=== PATIENT | male | born 1985 | race African-American/Black ===

== ENCOUNTER 2019-03-12 18:54 | Emergency (ER) | payer SELFPAY ==
[2019-03-12 19:18] VITALS: BP 112/73; PULSE 77; RESP 16; TEMP 37.2; O2SAT 98; BMI 27.0
[2019-03-12 23:29] VITALS: BP 114/95; PULSE 94; RESP 22; TEMP 36.3; O2SAT 100
[2019-03-12] MEDS: ACETAMINOPHEN 325 MG TABLET 650 MG PO (23:32)
--- NOTE | 2019-03-12 23:47 | PC.NURSE ---
PT states dental abscess to Right lower tooth and swelling to Right side of face for past 3 days. Denies fever, chills, nausea or vomiting. Pt states does not have dentist just moved to [place]. [ End ]
--- NOTE | 2019-03-12 23:57 | ED_ITS ---
HPI - Dental/Oral General Chief complaint: Dental/Oral Stated complaint: RIGHT SIDE MOUTH PAIN Time Seen by Provider: 03/12/19 23:39 Source: patient Mode of arrival: ambulatory Limitations: no limitations History of Present Illness HPI Narrative: Patient is a 33-year-old male presents with right tooth pain number 32 ongoing for last 2 days. He has facial swelling. No fever. Been taking [id number] Tylenol and ibuprofen. Patient apparently hyperventilated before was brought back. He said he started having some difficulty breathing his hands started getting cramps. Breathing now controlled overall feeling much better but still having dental pain. Location: Tooth # (32) 1. Fracture of tooth no dental abscess minimal swelling no trismus Onset (ago): day(s) (2) Related Data Previous Rx's Medication Instructions Recorded amoxicillin 500 mg PO BID #14 cap 03/12/19 Allergies Allergy/AdvReac Type Severity Reaction Status Date / Time No Known Drug Allergies Allergy Verified 03/12/19 19:18 Review of Systems Review of Systems GENERAL: Denies chills,fever HEENT: See HPI RESPIRATORY: Denies dyspnea, cough, wheezing CARDIOVASCULAR: Denies chest pain, palpitations GASTROINTESTINAL: Denies nausea, vomiting MUSCULOSKELETAL: Denies extremity pain, injury SKIN: No rash, no laceration, no pruritus NEUROLOGIC: Denies weakness, dizziness, headache, numbness 8 point review of systems is negative except for those stated above and HPI [facility] Medical History Patient denies significant medical history (Acute) Social History Smoking Status: Current every day smoker Social History Smoking Status: Current every day smoker Exam Initial Vital Signs Initial Vital Signs: Vital Signs Temperature 98.9 F 03/12/19 19:18 Pulse Rate 77 03/12/19 19:18 Respiratory Rate 16 03/12/19 19:18 Blood Pressure 112/73 03/12/19 19:18 Pulse Oximetry 98 03/12/19 19:18 GENERAL: Well-appearing, well-nourished and in no acute distress. CARDIOVASCULAR: peripheral pulses in tact, cap refill <2 sec RESPIRATORY: No respiratory distress, speaks in full sentences without difficulty EXTREMITIES: Normal range of motion, no clubbing or edema. Neurovascularly intact NEUROLOGICAL: Cranial nerves II through XII grossly intact. Normal gait and speech. SKIN: Warm, dry, no petechiae, no rashes or lesions. Course Orders Ordered: Discontinued Medications Acetaminophen (Tylenol) 650 mg PO NOW ONE Stop: 03/12/19 23:26 Last Admin: 03/12/19 23:32 Dose: 650 mg Amoxicillin ( Trimox 250mg Prepack) 1 bottle MISC SEEINSTR ONE Stop: 03/13/19 00:01 Last Admin: 03/13/19 00:02 Dose: 1 bottle Vital Signs - 8 hr 03/12/19 23:29 Temperature 97.4 F L Pulse Rate 94 H Respiratory Rate 22 Blood Pressure [Left Arm] 114/95 H Pulse Oximetry 100 Discharge Plan Departure Patient Disposition: Home Clinical Impression: Dental caries Discharge Date/Time: 03/13/19 00:02 Interventions: ED Discharge Assessment Last Done: 03/13/19 00:08 Instructions: DI for Dental Pain Activity Restrictions/Additional Instructions: *You have been diagnosed with dental pain *What to do: you need to see dentist you may need her to hold *Continue to take medications as directed The amoxicillin 500 mg twice daily *Follow up with your primary care provider in 2-3 days *Return to ER if you should have increasing pain, swelling or any new, worsening or concerning symptoms Prescriptions: New amoxicillin 500 mg capsule 500 mg PO BID Qty: 14 RF: 0
[2019-03-13] MEDS: AMOXICILLIN 250 MG PREPACK 1 BOTTLE MISC (00:02)
== END 2019-03-13 00:02 | disposition home or self-care (01) ==
PROVIDERS: Emergency Provider Emergency Medicine
DX: K02.9 Dental caries, unspecified (principal); R06.4 Hyperventilation
CPT/HCPCS: 99282; 99283

== ENCOUNTER 2022-11-20 04:49 | Inpatient (IN) | payer OTHER, MEDICAID, SELFPAY ==
[2022-11-20] VITALS (25 sets, daily range): BP systolic 106–145; BP diastolic 66–99; PULSE 71–116; RESP 8–22; TEMP 36.2–37.5; O2SAT 92–100; BMI 25.0
--- NOTE | 2022-11-20 05:09 | DI.RAD.S_ITS ---
PROCEDURE: XR HAND RT MIN 3V INDICATIONS: pain/swelling TECHNIQUE: 4 views of the hand(s) acquired. COMPARISON: None. FINDINGS: Bones: No fractures or dislocations. Subtle periarticular lucency at the 2nd digit MCP joint. Clinical significance of this finding in isolation is uncertain. Carpal bones are normally aligned. No suspicious bony lesions. Soft tissues: No suspicious soft tissue calcifications. Soft tissue swelling at the 3rd and 4th digits. IMPRESSION: Exam is limited due to positioning. No acute osseous abnormality. Soft tissue swelling at the 3rd and 4th digits. This report is concordant with the overnight preliminary interpretation. Dictated by: Gregorio Morel M.D. on 11/20/2022 at 8:18 Approved by: Gregorio Morel M.D. on 11/20/2022 at 8:24
--- NOTE | 2022-11-20 05:11 | ED_ITS ---
HPI - Wound/Laceration General Chief Complaint: Skin/Abscess/Foreign Body Stated Complaint: right hand infection Time Seen by Provider: 11/20/22 05:05 Source: family Mode of arrival: Family Vehicle Limitations: no limitations History of Present Illness HPI narrative: Patient complains of right hand pain and swelling and wound discharge. Patient was playing basketball 8 days ago and fell on the ground and scraped the dorsum of the 3rd MCP space joint. Since then has had increased pain and swelling. This morning had discharge oozing from the wound. Patient is right-handed. Needs up to date with tetanus shot. Patient here with fiancee Related Data Home Medications Medication Instructions Recorded Confirmed No Known Home Medications 11/20/22 11/20/22 Allergies Allergy/AdvReac Type Severity Reaction Status Date / Time No Known Drug Allergies Allergy Verified 11/20/22 07:31 Review of Systems Review of Systems Narrative: GENERAL: negative chills, fatigue, malaise, fever, sweats. HEENT: negative sinus pain, ear pain, sore throat RESPIRATORY: negative dyspnea, cough CARDIOVASCULAR: negative chest pain, palpitations GASTROINTESTINAL: negative nausea, vomiting, abdominal pain : negative dysuria, frequency, hematuria MUSCULOSKELETAL: Positive muscle or bony pain SKIN: negative rash, skin lesions, positive or skin injury NEUROLOGIC: negative weakness, numbness ROS Unobtainable: All systems reviewed & are unremarkable except as noted in HPI and below Patient History Medical History Patient denies significant medical history Social History (System 11/20/22 @ 07:31 by Lady Nadine Soler) household members: significant other Smoking Status: Current every day smoker Smoking Status: Current every day smoker alcohol intake frequency: holidays/special occasions only Substance Use Type: marijuana Exam Narrative Exam Narrative: GENERAL: in no distress, not toxic not dyspneic HEAD: Normocephalic. EYES: Pupils equal round No scleral icterus. ENT: Mucous membranes moist. NECK: Trachea midline. CARDIOVASCULAR: Regular rate and rhythm without murmurs RESPIRATORY: Clear to auscultation. Breath sounds equal bilaterally. No wheezes, rales, or rhonchi. GASTROINTESTINAL: Abdomen soft, non-tender EXTREMITIES: No gross deformities. Examination right upper extremity. There is complete diffuse edema erythema of the dorsum of the right hand, this does extend into fingers and thumb. At the center of skin wound overlying 3rd MCP joint is an ovoid 2 cm skin ulceration with active oozing. Wound culture was taken. Patient has very limited range of motion particularly at the 3rd finger. Due to extensive edema and pain. NEURO: AOx4. SKIN: Warm and dry PSYCH: Not anxious, is cooperative Initial Vital Signs Initial Vital Signs: Vital Signs Temperature 99.4 F 11/20/22 05:00 Pulse Rate 116 H 11/20/22 05:00 Respiratory Rate 22 11/20/22 05:00 Blood Pressure 145/99 H 11/20/22 05:00 Pulse Oximetry 100 11/20/22 05:00 Oxygen Delivery Method 11/20/22 05:00 Course Orders Ordered: Al Hydrox/Mg Hydrox/Simethicone (Mag Hydrox/Alum/Simeth 30 Ml Udc) 30 ml PO QID PRN PRN Reason: Dyspepsia Docusate Sodium (Docusate 100 Mg Capsule) 100 mg PO BID [facility] Last Admin: 11/20/22 20:34 Dose: Not Given Documented By: CLAIRE Vancomycin HCl (Vancomycin) 1,250 mg in 250 mls @ 166.7 mls/hr IV Q8H [facility] Last Infusion: 11/21/22 00:00 Dose: 0 mls/hr Documented By: Admin: 11/20/22 22:03 Dose: 166.7 mls/hr Documented By: Infusion: 11/20/22 15:09 Dose: 0 mls/hr Documented By: Admin: 11/20/22 13:26 Dose: 166.7 mls/hr Documented By: RB Ampicillin Sodium/Sulbactam (Sodium 3 gm/ Sodium Chloride) 100 mls @ 200 mls/hr IV Q6H [facility] Last Infusion: 11/21/22 03:03 Dose: 0 mls/hr Documented By: Admin: 11/21/22 02:13 Dose: 200 mls/hr Documented By: Infusion: 11/20/22 20:14 Dose: 0 mls/hr Documented By: Admin: 11/20/22 19:44 Dose: 200 mls/hr Documented By: Infusion: 11/20/22 15:53 Dose: 0 mls/hr Documented By: Admin: 11/20/22 15:17 Dose: 200 mls/hr Documented By: Infusion: 11/20/22 08:57 Dose: 0 mls/hr Documented By: Admin: 11/20/22 08:22 Dose: 200 mls/hr Documented By: CARA Lactated Ringer's (Lactated Ringers) 1,000 mls @ 125 mls/hr IV CONT DENNYS Last Admin: 11/20/22 20:33 Dose: 125 mls/hr Documented By: MP Naloxone HCl (Naloxone 0.4 Mg/Ml Vial) 0.2 mg IV Q2MIN PRN PRN Reason: Opiate Reversal Oxycodone HCl (Oxycodone Ir 5 Mg Tablet) 5 mg PO Q3HR PRN PRN Reason: Pain, Mild (1-3) Last Admin: 11/21/22 03:31 Dose: 5 mg Documented By: MP Polyethylene Glycol (Polyethylene Glycol 3350 17 Gm Powd.Pack) 17 gm PO DAILY PRN PRN Reason: Constipation Vancomycin HCl (Vancomycin Trough) 1 request [facility] 0530 [facility] Stop: 11/21/22 05:31 Vancomycin HCl (Vancomycin Peak) 1 request [facility] 0830 [facility] Stop: 11/21/22 08:31 Discontinued Medications Acetaminophen (Acetaminophen 325 Mg Tablet) 975 mg PO PACUNOW PRN PRN Reason: Pain, Mild (1-3) Diphtheria/Tetanus/Acell Pertussis (Tet,Diph,Pertuss(Acell),Vac/Pf 0.5 Ml Syringe) 0.5 ml IM .ONCE ONE Stop: 11/20/22 05:09 Last Admin: 11/20/22 06:03 Dose: 0.5 ml Documented By: GC Hydromorphone HCl (Hydromorphone 1 Mg Inj) 1 mg IV NOW ONE Stop: 11/20/22 06:43 Last Admin: 11/20/22 06:54 Dose: 1 mg Documented By: GC Hydromorphone HCl (Hydromorphone 1 Mg Inj) 0.2 mg IV Q1H PRN PRN Reason: Pain, Mild (1-3) Last Admin: 11/20/22 14:34 Dose: 0.2 mg Documented By: Admin: 11/20/22 10:24 Dose: 0.2 mg Documented By: CTS Hydromorphone HCl (Hydromorphone 2 Mg Inj) 0 mg IV Q5MIN PRN PRN Reason: Pain, Moderate (4-6) Hydromorphone HCl (Hydromorphone 2 Mg Inj) 0 mg IV Q5M PRN PRN Reason: Pain, Severe (7-10) Vancomycin HCl/Dextrose (Vancomycin) 1,500 mg in 300 mls @ 200 mls/hr IV NOW ONE Stop: 11/20/22 07:29 Last Infusion: 11/20/22 07:43 Dose: 0 mls/hr Documented By: Admin: 11/20/22 06:05 Dose: 200 mls/hr Documented By: GC Lactated Ringer's (Lactated Ringers) 1,000 mls @ 125 mls/hr IV CONT DENNYS Last Admin: 11/20/22 17:20 Dose: 125 mls/hr Documented By: Infusion: 11/20/22 17:20 Dose: 125 mls/hr Documented By: Infusion: 11/20/22 15:54 Dose: 125 mls/hr Documented By: Infusion: 11/20/22 15:17 Dose: 0 mls/hr Documented By: Admin: 11/20/22 09:17 Dose: 125 mls/hr Documented By: DIPAK Naloxone HCl (Naloxone 0.4 Mg/Ml Vial) 0.2 mg IV Q2MIN PRN PRN Reason: Opiate Reversal Ondansetron HCl (Ondansetron 4 Mg/2 Ml Inj) 4 mg IV NOW ONE Stop: 11/20/22 06:43 Last Admin: 11/20/22 06:54 Dose: 4 mg Documented By: EVE Oxycodone HCl (Oxycodone Ir 5 Mg Tablet) 5 mg PO PACUNOW PRN PRN Reason: Mild or moderate pain Last Admin: 11/20/22 19:20 Dose: 5 mg Documented By: Admin: 11/20/22 18:49 Dose: 5 mg Documented By: BALAJI Vancomycin HCl (Vancomycin Per Pharmacy) 1 request MISC NOW ONE Stop: 11/20/22 05:09 Last Admin: 11/20/22 06:10 Dose: Not Given Documented By: EVE Vital Signs Vital signs: Vital Signs - 8 hr 11/20/22 05:00 Temperature 99.4 F Pulse Rate 116 H Respiratory Rate 22 Blood Pressure 145/99 H Pulse Oximetry 100 Oxygen Delivery Method Room Air MDM - Wound/Laceration Lab Data Result diagrams: 11/20/22 05:30 11/20/22 05:30 Labs: Lab Results 11/20/22 11/20/22 11/20/22 Range/Units 05:28 05:30 05:30 WBC 12.6 H (4.5-11.0) X10^3/uL RBC 4.28 L (4.5-5.9) X10^6/uL Hgb 11.7 L (13.5-17.5) g/dL Hct 35.2 L (41-53) % MCV 82.1 (80-100) fL MCH 27.4 (26-34) PG MCHC 33.3 (30-36) % RDW 14.0 (11.6-14.8) % Plt Count 391 (150-400) X10^3/uL Neut % (Auto) 78.6 H (50-75) % Lymph % (Auto) 10.2 L (25-40) % [place] % (Auto) 9.9 (3-14) % Eos % (Auto) 0.9 L (2-4) % Baso % (Auto) 0.4 (0-2) % Neut # (Auto) 9900 H (2286-9340) /uL Lymph # (Auto) 1300 (7138-5550) /uL [place] # (Auto) 1200 H (0-900) /uL Eos # (Auto) 100 (0-450) /uL Baso # (Auto) 0 (0-100) /uL Sodium 134 L (137-145) mmol/L Potassium 3.7 (3.4-5.1) mmol/L Chloride 94 L (98-107) mmol/L Carbon Dioxide 30 (22-32) mmol/L BUN 12 (9-20) mg/dL Creatinine 0.97 (0.66-1.25) mg/dL Estimated GFR > 60 (>60) mL/min BUN/Creatinine Ratio 12.4 (6-22) Glucose 116 H (70-100) mg/dL Lactate (0.7-2.1) mmol/L Calcium 9.1 (8.4-10.2) mg/dL Total Bilirubin 0.3 (0.2-1.3) mg/dL AST 22 (17-59) IU/L ALT 22 (<50) IU/L Alkaline Phosphatase 135 H (38-126) U/L Total Protein 8.4 H (6.3-8.2) g/dL Procalcitonin 0.15 (<0.5) ng/mL SARS-CoV-2 (PCR) Negative (Negative) 11/20/22 Range/Units 05:30 WBC (4.5-11.0) X10^3/uL RBC (4.5-5.9) X10^6/uL Hgb (13.5-17.5) g/dL Hct (41-53) % MCV (80-100) fL MCH (26-34) PG MCHC (30-36) % RDW (11.6-14.8) % Plt Count (150-400) X10^3/uL Neut % (Auto) (50-75) % Lymph % (Auto) (25-40) % [place] % (Auto) (3-14) % Eos % (Auto) (2-4) % Baso % (Auto) (0-2) % Neut # (Auto) (4214-1233) /uL Lymph # (Auto) (2878-6763) /uL [place] # (Auto) (0-900) /uL Eos # (Auto) (0-450) /uL Baso # (Auto) (0-100) /uL Sodium (137-145) mmol/L Potassium (3.4-5.1) mmol/L Chloride (98-107) mmol/L Carbon Dioxide (22-32) mmol/L BUN (9-20) mg/dL Creatinine (0.66-1.25) mg/dL Estimated GFR (>60) mL/min BUN/Creatinine Ratio (6-22) Glucose (70-100) mg/dL Lactate 2.1 (0.7-2.1) mmol/L Calcium (8.4-10.2) mg/dL Total Bilirubin (0.2-1.3) mg/dL AST (17-59) IU/L ALT (<50) IU/L Alkaline Phosphatase (38-126) U/L Total Protein (6.3-8.2) g/dL Procalcitonin (<0.5) ng/mL SARS-CoV-2 (PCR) (Negative) Imaging Data Extremity x-ray #1: Radiologist's Impression: Diffuse soft tissue swelling of the 3rd and 4th digit MDM Narrative Medical decision making narrative: Patient complains of right hand pain and swelling and wound discharge. Patient was playing basketball 8 days ago and fell on the ground and scraped the dorsum of the 3rd MCP space joint. Since then has had increased pain and swelling. This morning had discharge oozing from the wound. Patient is right-handed. Needs up to date with tetanus shot. Patient here with fisyede After exam and history, CBC CMP blood cultures COVID swab x-ray of hand were ordered. IV antibiotics vancomycin has been ordered as well [facility] CC: ?Right hand pain and swelling ? Complicating co-morbidities: ?None ? Data collected from: Patient and fiancee ? Medical records reviewed: ?Patient seen here in 2019 for dental caries ? Differential considered: Right hand cellulitis/abscess ? Exam documented above, pertinent findings include: Infected skin wound overlying the 3rd MCP joint. ? Lab Test results independently reviewed as above. Pertinent findings: CBC with leukocytosis 12.6. CMP otherwise unremarkable. Lactic acid is normal. ? Imaging studies independently reviewed: X-ray right hand shows diffuse soft tissue swelling of the 3rd and 4th digit without fracture or dislocation ? Consultations: 6:[address] Aguayo, orthopedics, will admit to his service and will take patient to the operating room later this afternoon. ? Treatments: IV antibiotics vancomycin started, Dilaudid and Zofran given as well. ? Re-evaluations: 6:46 a.m.. Updated patient results. Understands he will have surgery today. ? Discussion: Appropriate for admission for incision drainage wound by Orthopedics. ? Diagnosis: Infected hand wound ? Disposition: Admit Discharge Plan Departure Patient Disposition: Admitted as Observation Clinical Impression: Infection, wound status post trauma Admit Date/Time: 11/20/22 06:43 Admit Provider: Austen Aguayo
[2022-11-20 05:48] LABS: Add Manual Diff / Slide Review NO; Basophils Absolute Auto 0 /uL (0-100); Basophils Percent Auto 0.4 % (0-2); Eosinophils Absolute Auto 100 /uL (0-450); Eosinophils Percent Auto 0.9 % (2-4); Hematocrit 35.2 % (41-53); Hemoglobin 11.7 g/dL (13.5-17.5); Lymphocytes Absolute Auto 1300 /uL (1100-4500); Lymphocytes Percent Auto 10.2 % (25-40); Mean Corpuscular HGB Conc 33.3 % (30-36); Mean Corpuscular Hemoglobin 27.4 PG (26-34); Mean Corpuscular Volume 82.1 fL (80-100); Monocytes Absolute Auto 1200 /uL (0-900); Monocytes Percent Auto 9.9 % (3-14); Neutrophils Absolute Auto 9900 /uL (1500-7000); Neutrophils Percent Auto 78.6 % (50-75); Platelet Count 391 X10^3/uL (150-400); Red Blood Cell Count 4.28 X10^6/uL (4.5-5.9); White Blood Cell Count 12.6 X10^3/uL (4.5-11.0)
[2022-11-20 05:57] LABS: Lactate (Lactic Acid) 2.1 mmol/L (0.7-2.1)
[2022-11-20 05:58] LABS: Alanine Aminotransferase 22 IU/L (<50); Alkaline Phosphatase 135 U/L (38-126); Aspartate Aminotransferase 22 IU/L (17-59); BUN Creatinine Ratio 12.4 (6-22); Bilirubin Total 0.3 mg/dL (0.2-1.3); Blood Urea Nitrogen 12 mg/dL (9-20); Calcium 9.1 mg/dL (8.4-10.2); Carbon Dioxide 30 mmol/L (22-32); Chloride 94 mmol/L (98-107); Estimated Glomerular Filt Rate > 60 mL/min (>60); Glucose 116 mg/dL (70-100); Potassium 3.7 mmol/L (3.4-5.1); Sodium 134 mmol/L (137-145); Total Protein 8.4 g/dL (6.3-8.2)
[2022-11-20] MEDS: TET,DIPH,PERTUSS(ACELL),VAC/PF 0.5 ML SYRINGE IM (06:03)
[2022-11-20] MEDS: VANCOMYCIN 1,500 MG/300 ML PIGGYBACK 200 MG IV (06:05)
[2022-11-20 06:15] LABS: Procalcitonin 0.15 ng/mL (<0.5)
[2022-11-20 06:23] LABS: COVID19 -Nasal RAPID Negative (Negative)
[2022-11-20] MEDS: ONDANSETRON 4 MG/2 ML INJ IV (06:54)
[2022-11-20] MEDS: HYDROMORPHONE 1 MG INJ IV (06:54)
[2022-11-20 07:44] LABS: Reflexed Lactate in 2 Hours Y
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
[2022-11-20 08:15] LABS: Lactate 2HR (Lactic Acid Rflx) 0.6 mmol/L (0.7-2.1)
[2022-11-20] MEDS: AMPICILLIN/SULBACTAM 3 GM 3 GM in SODIUM CHLORIDE 0.9% 100 ML IV ×3 (08:22→19:44)
[2022-11-20] MEDS: LACTATED RINGERS 1,000 ML 125 ML IV ×3 (09:17→20:33)
[2022-11-20] MEDS: HYDROMORPHONE 1 MG INJ 0.2 MG IV ×2 (10:24→14:34)
[2022-11-20] MEDS: VANCOMYCIN 1,250 MG/250 ML PIGGYBACK 166.7 MG IV ×2 (13:26→22:03)
--- NOTE | 2022-11-20 18:18 | SUR.OPER ---
Supine on padded OR bed, head on pillow, arm left secured on padded arm boards at <90 degrees abduction, legs uncrossed, safety belt at thigh, tape over blanket over lower legs, arm right free in field on padded arm board
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
[2022-11-20] MEDS: OXYCODONE IR 5 MG TABLET PO ×2 (18:49→19:20)
[2022-11-21] VITALS: BP 111/72; PULSE 89; RESP 16; TEMP 36.2; O2SAT 97
--- NOTE | 2022-11-21 00:52 | CM.MNRNOTE ---
Pt. admitted from PACU @ 1940, oriented to his room. Encouraged to call for any needs & assistance call light with in reach & girlfriend Farida @ the bedside. Will cont. POC & monitor.
[2022-11-21] MEDS: AMPICILLIN/SULBACTAM 3 GM 3 GM in SODIUM CHLORIDE 0.9% 100 ML IV ×3 (02:13→13:09)
--- NOTE | 2022-11-21 02:30 | PC.NURSE ---
Girlfriend Farida reported he need some pain medication. Pulled out 5 mg. of oxycodone & was about to scan his arm band & asked him his pain level. He reported I have no pain, returned oxycodone back to [facility]. Encouraged him to call RN if he needed pain relief. Will cont. POC & monitor.
[2022-11-21] MEDS: OXYCODONE IR 5 MG TABLET PO ×2 (03:31→15:32)
[2022-11-21 04:00] VITALS: BP 122/66; PULSE 80; RESP 18; TEMP 36.3; O2SAT 97
[2022-11-21 06:02] LABS: Hematocrit 34.8 % (41-53); Hemoglobin 11.4 g/dL (13.5-17.5); Mean Corpuscular HGB Conc 32.8 % (30-36); Mean Corpuscular Hemoglobin 27.1 PG (26-34); Mean Corpuscular Volume 82.7 fL (80-100); Platelet Count 417 X10^3/uL (150-400); Red Blood Cell Count 4.21 X10^6/uL (4.5-5.9); White Blood Cell Count 12.1 X10^3/uL (4.5-11.0)
[2022-11-21 06:13] LABS: Vancomycin Trough 13.9 ug/mL (10-20)
[2022-11-21] MEDS: VANCOMYCIN 1,250 MG/250 ML PIGGYBACK 166.7 MG IV ×2 (06:23→13:47)
[2022-11-21] MEDS: VANCOMYCIN TROUGH 1 REQUEST MISC (06:23)
[2022-11-21 08:08] VITALS: BP 109/55; PULSE 78; RESP 18; TEMP 36.4; O2SAT 97
[2022-11-21] MEDS: VANCOMYCIN PEAK 1 REQUEST MISC (08:45)
[2022-11-21] MEDS: DOCUSATE 100 MG CAPSULE PO (09:04)
[2022-11-21 09:36] LABS: Vancomycin Peak 31.4 ug/mL (20-40)
--- NOTE | 2022-11-21 13:00 | PT-IP ANOTE ---
PT eval received and EMR reviewed. Pt in the hospital s/p I&D of R hand abscess. talked with nurse and NAC and stated that pt is independent with ambulation in room. Called Dr. Aguayo office to inform regarding pt's mobility and PT will d/c PT order but inquired if ortho MD wants OT eval to address UE/hand function and ADLs. JESSIKA Ventura called back and agreed to d/c PT and to put in OT eval order.
--- NOTE | 2022-11-21 13:37 | P.PN_ITS ---
Subjective Subjective Date Patient Seen: 11/21/22 Time Patient Seen: 13:37 Interval history: Pt resting comfortably in bed, eating lunch. Pain well-controlled, no c omplaints at this time. Exam Vital Signs (past 8 hours): - 11/21/22 07:00 11/21/22 08:08 Temperature 97.5 F L Pulse Rate 78 Respiratory Rate 18 Blood Pressure 109/55 L Pulse Oximetry 97 Oxygen Delivery Method Room Air Oxygen Flow Rate 0 Oxygen Delivery Method Room Air Oxygen Flow Rate 0 Narrative Exam Narrative: Able to wiggle fingers on right hand, sensation intact throughout RUE, brisk capillary refill. Dressing CDI. Objective Labs Result Diagrams: 11/21/22 05:37 11/20/22 05:30 Labs: Laboratory Results - last 24 hr 11/21/22 11/21/22 11/21/22 05:37 05:37 08:05 WBC 12.1 H RBC 4.21 L Hgb 11.4 L Hct 34.8 L MCV 82.7 MCH 27.1 MCHC 32.8 RDW 14.0 Plt Count 417 H Vancomycin Peak 31.4 Vancomycin Trough 13.9 PFSH Medical History Patient denies significant medical history Social History (System 11/20/22 @ 07:31 by Lady Nadine Soler) household members: significant other Smoking Status: Current every day smoker Assessment & Plan Post-op Assessment and plan (1) Infection, wound status post trauma: Assessment and Plan narrative: WBC down slightly today. Blood cxs negative after 24 hours. GS from intraoperative cx negative; aerobic and anaerobic cxs pending. Plan is to take down dressing and remove drain tomorrow, possible return to surgery. Pt made NPO after midnight in anticipation of potential surgery. Postoperative Procedures: Procedures Operation Date: 11/20/22 17:15 Actual Procedure Side Surgeon p I&D long finger septic MCP joint Right Austen Aguayo MD Postoperative day: 1 Quality VTE Deep Vein Thrombosis/Pulmonary Embolism Present on Admission: No
[2022-11-21 17:00] VITALS: BP 101/56; PULSE 77; RESP 16; TEMP 36.2; O2SAT 97
--- NOTE | 2022-11-21 17:50 | OT.IPNOTE ---
OT mitzi received and unable to complete today, to check on pt tomorrow pending triage level.
--- NOTE | 2022-11-21 20:11 | PC.NURSE ---
Addendum entered by Halle Kincaid R.N. 11/21/22 20:41: Notified Dr Oropeza who is cone classifier tender for Orthopedic Surgeon, informed him of patient leaving AMA. Will inform him if patient returns. Addendum entered by Halle Kincaid R.N. 11/21/22 20:27: Patient still hasn't returned, family is trying to locate him per [employer]. Of note, PIV was still in place when patient left. Original Note: Patient left room with backpack at 1999 without this RN seeing patient yet. Girlfriend in room said he was very upset that he couldn't smoke or eat what he wants she doesn't know if he will return, she left with remaining belongings to look for him Coordinator informed.
--- NOTE | 2022-11-21 21:53 | PC.NURSE ---
pt who left AMA with IV in place. pt returned to have IV removed. Surgeon Phone number given to patient and encouraged patient to call the office tomorrow to discuss wound care and plan for drain removal. Pt agreed.
[2022-11-22 16:44] LABS: Albumin 3.6 g/dL (3.5-5.0); Albumin Globulin Ratio 0.8 (1.0-2.8); Globulin 4.8 g/dL (1.7-4.1); HEMOLYSIS 17 (0-50)
== END 2022-11-21 20:00 | disposition left against medical advice (07) | DRG 383 ==
LOC: ED 05:18 → AC 06:43
PROVIDERS: Admitting Provider Orthopaedic Surgery; Emergency Provider Emergency Medicine; Referring Provider Emergency Medicine; Visit Provider Orthopaedic Surgery
PROC: 0R9 Upper Joints, Drainage (ICD-10-PCS; principal; 2022-11-20 17:15)
DX: L02.511 Cutaneous abscess of right hand (principal); F17.200 Nicotine dependence, unspecified, uncomplicated; Z20.822 Contact with and (suspected) exposure to COVID-19; Z23 Encounter for immunization; Z53.29 Procedure and treatment not carried out because of patient's decision for other reasons
CPT/HCPCS: 36415; 73130; 80053; 80202; 83605; 84145; 85025; 85027; 87040; 87070; 87075; 87077; 87147; 87205; 87635; 90471; 96365; 96366; 96367; 96375; 96376; 99284; C9803; 90715; J0295; J1100; J1170; J2250; J2405; J2704; J3010

== ENCOUNTER 2022-11-22 11:44 | Emergency (ER) | payer OTHER, MEDICAID, SELFPAY ==
[2022-11-20 22:36] VITALS: BMI 25.0
[2022-11-22 12:02] VITALS: BP 149/71; PULSE 80; RESP 15; TEMP 36.8; O2SAT 99; BMI 25.0
== END 2022-11-22 13:30 | disposition left against medical advice (07) ==
PROVIDERS: Emergency Provider Emergency Medicine
DX: R79.9 Abnormal finding of blood chemistry, unspecified (principal)
CPT/HCPCS: 99281